=== PATIENT | female | born 1955 | race Caucasian/White ===

== ENCOUNTER 2017-11-17 16:22 | Emergency (ER) | payer MEDICARE ==
[~2017-11-17] VITALS: Ht 154.9 cm; Wt 63.5 kg
[2017-11-17 16:30] VITALS: BP 178/79
--- NOTE | 2017-11-17 17:03 | PHYS DOC ---
Past Medical History Past Medical History: COPD, Fibromyalgia Additional Past Medical Histor: PACEMAKER FOR "LOW HEART RATE" Past Surgical History: Gastric Bypass, Hysterectomy, Oophorectomy, Pacemaker, Other Additional Past Surgical Histo: HERNIA REPAIR Alcohol Use: None Drug Use: None Adult General Chief Complaint Chief Complaint: OTHER COMPLAINTS HPI HPI Patient is a pleasant 62-year-old female who presents to the emergency department for evaluation. She underwent an outpatient laparoscopic left oophorectomy yesterday at . 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 She states that when returning home yesterday after the surgery, she became conscious of some numbness in her anterior and lateral left thigh and left leg. She received a postop call from yesterday, and mentioned to them about the numbness, and was told that if it persisted, she should call her doctor. She called her doctor's office this afternoon and was told that she might have a blood clot and should come to the emergency department. The patient denies any leg pain or swelling, and is not having any calf pain. She has not had any muscle weakness exam both her without any difficulty. She is not having any upper extremity symptoms. She has a history of a pacemaker secondary to bradycardia, but is on no anticoagulants at this time and has not had any stroke symptoms in the past. Neither the patient or myself or suspicious that the patient has had a stroke. Clinical suspicion is that the patient was placed in the lithotomy position during her surgery, and she is now suffering a neuropraxia related to surgical positioning. Alternative possibility is partial anesthesia related to infiltration of local anesthetic perioperatively. Review of Systems Review of Systems Constitutional: Denies fever or chills [] Eyes: Denies change in visual acuity, redness, or eye pain [] HENT: Denies nasal congestion or sore throat [] Respiratory: Denies cough or shortness of breath [] Cardiovascular: The patient denies any shortness of breath, chest pain, palpitations, or orthopnea [] GI: Denies abdominal pain (other than as would be expected postoperatively), nausea, vomiting, bloody stools or diarrhea [] : Denies dysuria or hematuria [] Musculoskeletal: Denies back pain or joint pain [] Integument: Denies rash or skin lesions [] Neurologic: Denies headache, focal weakness or sensory changes other than as noted in the history of present illness. [] Endocrine: Denies polyuria or polydipsia [] All other systems were reviewed and found to be within normal limits, except as documented in this note. Allergies Allergies Allergies Coded Allergies Type Severity Reaction Last Updated Verified codeine Allergy Mild 02/08/15 Yes erythromycin base Allergy Mild 02/08/15 Yes hydrocodone Allergy Unknown 02/08/15 Yes Physical Exam Physical Exam PHYSICAL EXAM: CONSTITUTIONAL: Well developed, well nourished HEAD: normocephalic, atraumatic EENT: PERRL, EOMI. Conjunctivae normal color, sclerae non-icteric; moist mucous membranes. NECK: Supple, non-tender; no meningismus. LUNGS: Lungs CTA, breathing even and unlabored. Normal air movement. HEART: Regular rate and rhythm, no murmur CHEST: No deformity; non-tender ABDOMEN: The abdomen is soft, there is mild suprapubic tenderness to palpation, likely related to postoperative state, with dressed anterior lower abdominal wall wounds. The remainder the abdomen is soft and non-tender, no masses or bruits. EXTREM: Normal ROM; no deformity, no calf tenderness. Normal pulses palpable in all extremities. There is no pedal edema. SKIN: No rash; no diaphoresis NEURO: Alert; normal speech and cognition; CN's grossly intact; strength grossly intact without focal deficit. The patient is ambulatory without any difficulty. She able to walk on her heels and tiptoes. There is no foot drop. There is no perineal anesthesia. There is pinprick deficit, on the anterior and lateral thighs, will extending to the anterior and lateral lower leg, towards the foot, but sensation improves the more distal the exam proceeds. The medial and posterior thighs have normal sensation. The remainder of the extremities have normal sensation. BACK: No CVA TTP. Current Patient Data Vital Signs Vital Signs Date Time Temp Pulse Resp B/P (MAP) Pulse Ox O2 Delivery O2 Flow Rate FiO2 11/17/17 16:30 97.6 60 18 178/79 (112) 96 Room Air 97.6 EKG EKG [] Radiology/Procedures Radiology/Procedures [] Course & Med Decision Making Course & Med Decision Making 5:10 PM: I did speak with Dr. Jamil, the patient's [employer] surgeon at , and she confirmed that the patient was, in fact in the lithotomy position, and her symptoms are suggestive of a neurapraxia, and agreed with expectant management. 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 Dragon Disclaimer Dragon Disclaimer This electronic medical record was generated, in whole or in part, using a voice recognition dictation system. Departure Departure Impression: Primary Impression: Neurapraxia Disposition: 01 HOME, SELF-CARE Condition: STABLE Referrals: DIONNA MCLAUGHLIN MD (PCP) Patient Instructions: SINDY Dao MD Nov 17, 2017 17:03
== END 2017-11-17 17:30 | disposition home or self-care (01) ==
LOC: ER 16:22
DX: S34.8XXA Injury of other nerves at abdomen, lower back and pelvis level, initial encounter (principal); M79.7 Fibromyalgia; J44.9 Chronic obstructive pulmonary disease, unspecified; Z95.5 Presence of coronary angioplasty implant and graft; Z98.890 Other specified postprocedural states; Z97.10 Presence of artificial limb (complete) (partial), unspecified; Z98.84 Bariatric surgery status; Z90.721 Acquired absence of ovaries, unilateral; Z88.1 Allergy status to other antibiotic agents; Z88.5 Allergy status to narcotic agent; X58.XXXA Exposure to other specified factors, initial encounter; Y93.89 Activity, other specified; Y92.89 Other specified places as the place of occurrence of the external cause; Y99.8 Other external cause status
CPT/HCPCS: 99281